=== PATIENT | male | born 1960 | race Two or more races ===

== ENCOUNTER → 2017-10-17 | Outpatient (CLI) | payer OTHER ==
[2017-10-17 07:37] LABS: BASOPHIL % 0.6 % (0-2); PLATELET COUNT 287 x10^3mcL (130-400); RED CELL DISTRIBUTION WIDTH 13.6 % (11.5-14.5)
[2017-10-17 07:43] LABS: ALBUMIN 3.8 g/dL (3.4-5.0); ALKALINE PHOSPHATASE 93 U/L (46-116); ALT/SGPT 40 U/L (16-63); AST/SGOT 24 U/L (15-37); BILIRUBIN DIRECT 0.13 mg/dL (0.0-0.2); BILIRUBIN TOTAL 0.6 mg/dL (0.20-1.00); CALCIUM 8.1 mg/dL (8.5-10.1); CARBON DIOXIDE 27.4 mmol/L (21-32); CHLORIDE SERUM 104 mmol/L (98-107); CREATININE SERUM 0.9 mg/dL (0.7-1.3); GFR1 > 60 mL/min; GLUCOSE SERUM 121 mg/dL (74-106); HDL CHOLESTEROL 38 mg/dL (40-60); POTASSIUM SERUM 4.4 mmol/L (3.5-5.1); SODIUM SERUM 139 mmol/L (136-145); TOTAL PROTEIN, SERUM 7.8 g/dL (6.4-8.2)
[2017-10-17 07:45] LABS: CHOLESTEROL 125 mg/dL (<200); CHOLESTEROL/HDL RATIO 3.3; TRIGLYCERIDES 212 mg/dL (<150)
[2017-10-18 10:34] LABS: VITAMIN D 25-HYDROXY 12.4 ng/mL (30.0-100.0)
[2017-10-18 16:52] LABS: microalbumin:creatinine ratio 48.2 (0.0-30.0)
== END | disposition home or self-care (01) ==
LOC: LB 06:41
PROVIDERS: Internal Medicine
DX: Z00.00 Encounter for general adult medical examination without abnormal findings (principal)
CPT/HCPCS: 84153

== ENCOUNTER → 2018-02-07 | Outpatient (CLI) | payer OTHER ==
[2018-02-07 07:39] LABS: BASOPHIL % 0.7 % (0-2); PLATELET COUNT 282 x10^3mcL (130-400)
[2018-02-07 07:42] LABS: ALKALINE PHOSPHATASE 84 U/L (46-116); ALT/SGPT 50 U/L (16-63); AST/SGOT 31 U/L (15-37); BILIRUBIN DIRECT 0.16 mg/dL (0.0-0.2); BILIRUBIN TOTAL 0.6 mg/dL (0.20-1.00); CALCIUM 8.6 mg/dL (8.5-10.1); CARBON DIOXIDE 29.2 mmol/L (21-32); CHLORIDE SERUM 102 mmol/L (98-107); CREATININE SERUM 1.1 mg/dL (0.7-1.3); GFR1 > 60 mL/min; GLUCOSE SERUM 126 mg/dL (74-106); HDL CHOLESTEROL 38 mg/dL (40-60); POTASSIUM SERUM 4.6 mmol/L (3.5-5.1); SODIUM SERUM 136 mmol/L (136-145); TOTAL PROTEIN, SERUM 7.9 g/dL (6.4-8.2); TRIGLYCERIDES 145 mg/dL (<150)
[2018-02-07 07:46] LABS: CHOLESTEROL 125 mg/dL (<200); CHOLESTEROL/HDL RATIO 3.3
== END | disposition home or self-care (01) ==
LOC: LB 06:26
PROVIDERS: Internal Medicine
DX: Z00.00 Encounter for general adult medical examination without abnormal findings (principal)

== ENCOUNTER → 2019-02-07 | Outpatient (CLI) | payer OTHER ==
[2019-02-07 07:24] LABS: BASOPHIL % 0.6 % (0-2); PLATELET COUNT 277 x10^3mcL (130-400); RED CELL DISTRIBUTION WIDTH 14.2 % (11.5-14.5)
[2019-02-07 07:32] LABS: ALKALINE PHOSPHATASE 85 U/L (46-116); ALT/SGPT 46 U/L (16-63); AST/SGOT 22 U/L (15-37); BILIRUBIN DIRECT 0.14 mg/dL (0.0-0.2); BILIRUBIN TOTAL 0.46 mg/dL (0.20-1.00); CALCIUM 9.3 mg/dL (8.5-10.1); CARBON DIOXIDE 28.7 mmol/L (21-32); CHLORIDE SERUM 101 mmol/L (98-107); GFR1 > 60 mL/min; GLUCOSE SERUM 125 mg/dL (74-106); HDL CHOLESTEROL 41 mg/dL (40-60); POTASSIUM SERUM 5.1 mmol/L (3.5-5.1); SODIUM SERUM 139 mmol/L (136-145); TRIGLYCERIDES 107 mg/dL (<150)
[2019-02-07 07:33] LABS: CHOLESTEROL 131 mg/dL (<200); CHOLESTEROL/HDL RATIO 3.2
== END | disposition home or self-care (01) ==
LOC: LB 06:25
PROVIDERS: Internal Medicine
DX: Z00.00 Encounter for general adult medical examination without abnormal findings (principal)
CPT/HCPCS: 84153

== ENCOUNTER → 2020-05-08 | Outpatient (CLI) | payer OTHER ==
[2020-05-08 07:55] LABS: BASOPHIL % 0.9 % (0.2-1.5); PLATELET COUNT 275 x10^3mcL (152-348)
[2020-05-08 08:28] LABS: ALBUMIN 4.3 g/dL (3.4-5.0); ALKALINE PHOSPHATASE 65 U/L (46-116); ALT/SGPT 31 U/L (16-63); AST/SGOT 18 U/L (15-37); BILIRUBIN DIRECT 0.13 mg/dL (0.0-0.2); BILIRUBIN TOTAL 0.65 mg/dL (0.20-1.00); CALCIUM 9.3 mg/dL (8.5-10.1); CARBON DIOXIDE 30.1 mmol/L (21-32); CHLORIDE SERUM 101 mmol/L (98-107); CHOLESTEROL 146 mg/dL (<200); CHOLESTEROL/HDL RATIO 3.1; CREATININE SERUM 1.2 mg/dL (0.7-1.3); GFR1 > 60 mL/min; GLUCOSE SERUM 110 mg/dL (74-106); HDL CHOLESTEROL 47 mg/dL (40-60); POTASSIUM SERUM 4.4 mmol/L (3.5-5.1); SODIUM SERUM 137 mmol/L (136-145); TOTAL PROTEIN, SERUM 8.1 g/dL (6.4-8.2); TRIGLYCERIDES 120 mg/dL (<150)
== END | disposition home or self-care (01) ==
LOC: LB 06:12
PROVIDERS: ATTEND Internal Medicine
DX: Z00.00 Encounter for general adult medical examination without abnormal findings (principal)
CPT/HCPCS: 84153